=== PATIENT | male | born 1965 | race Caucasian/White ===

== ENCOUNTER 2017-03-03 06:11 | Day surgery (SDC) | payer OTHER ==
[~2017-03-03] VITALS: Ht 193 cm; Wt 83.9 kg
[2017-03-03] MEDS ORDERED: PRO5 PO (09:57)
[2017-03-03] MEDS ORDERED: HYDROmorphone 1 MG/ML AMP IVP PRN (12:35)
[2017-03-03] MEDS ORDERED: ONDANSETRON 4 MG/2 ML VIAL IVP PRN (12:35)
== END 2017-03-03 14:55 | disposition home or self-care (01) ==
LOC: MDS 06:11 → MMU 06:28 → MDS 14:55
PROVIDERS: ATTEND Internal Medicine Gastroenterology
DX: R13.10 Dysphagia, unspecified (principal); I12.9 Hypertensive chronic kidney disease with stage 1 through stage 4 chronic kidney disease, or unspecified chronic kidney disease; E11.22 Type 2 diabetes mellitus with diabetic chronic kidney disease; J45.909 Unspecified asthma, uncomplicated; K21.9 Gastro-esophageal reflux disease without esophagitis; E66.3 Overweight; I25.10 Atherosclerotic heart disease of native coronary artery without angina pectoris; I63.9 Cerebral infarction, unspecified; D64.9 Anemia, unspecified; F03.90 Unspecified dementia, unspecified severity, without behavioral disturbance, psychotic disturbance, mood disturbance, and anxiety; Z85.850 Personal history of malignant neoplasm of thyroid; N18.9 Chronic kidney disease, unspecified; Z88.8 Allergy status to other drugs, medicaments and biological substances
CPT/HCPCS: 43239; 71010; 93005; J0690; J7030; J7060; J7120